=== PATIENT | female | born 1970 | race Caucasian/White ===

== ENCOUNTER 2020-11-16 18:25 | Outpatient (CLI) | payer BC | END 2020-11-16 18:26 | disposition home or self-care (01) | LOC: COV 18:25 | PROVIDERS: ATTEND Family Medicine | DX: R05 Cough (principal); M79.10 Myalgia, unspecified site; R53.83 Other fatigue; R07.0 Pain in throat; J34.89 Other specified disorders of nose and nasal sinuses; Z20.822 Contact with and (suspected) exposure to COVID-19 ==